=== PATIENT | female | born 2000 | race Caucasian/White ===

== ENCOUNTER 2020-05-06 09:52 | Emergency (ER) | payer OTHER ==
[~2020-05-06] VITALS: Ht 167.6 cm; Wt 59.1 kg
[2020-05-06] MEDS ORDERED: bcp's PO (09:57)
[2020-05-06 10:19] LABS: BASO # 0.1 10^3/uL (0.0-0.2); EOS # 0.1 10^3/uL (0.0-0.5); EOS % 1.4 % (0.0-3.0); HEMATOCRIT 40.3 % (36.0-47.0); HEMOGLOBIN 13.1 g/dl (12.0-15.5); LYMPH # 2.7 10^3/uL (1.5-5.0); LYMPH % 34.8 % (24.0-44.0); MEAN CORPUSCULAR HEMOGLOBIN 30.8 pg (27.0-33.0); MEAN CORPUSCULAR HGB CONC 32.5 g/dl (32.0-36.5); MEAN CORPUSCULAR VOLUME 94.8 fl (80.0-96.0); MONO # 0.6 10^3/uL (0.0-0.8); MONO % 7.3 % (0.0-5.0); NEUTROPHILS # 4.3 10^3/uL (1.5-8.5); NEUTROPHILS % 55.1 % (36.0-66.0); PLATELET COUNT, AUTOMATED 352 10^3/uL (150-450); RED BLOOD COUNT 4.25 10^6/uL (4.00-5.40); WHITE BLOOD COUNT 7.8 10^3/uL (4.0-10.0)
[2020-05-06 10:42] LABS: ALBUMIN 3.9 GM/DL (3.2-5.2); ALT/SGPT 22 U/L (12-78); BILIRUBIN,DIRECT < 0.1 MG/DL (0.0-0.2); BILIRUBIN,TOTAL 0.3 MG/DL (0.2-1.0); LIPASE 89 U/L (73-393); TOTAL PROTEIN 7.4 GM/DL (6.4-8.2)
[2020-05-06] MEDS ORDERED: cefTRIAXone SOD 1 GM in D5W MINI-BAG PLUS 50 ML IV ONE (11:00)
[2020-05-06] MEDS ORDERED: NS 1,000 ML IV ONE (11:15)
--- NOTE | 2020-05-06 11:52 | REP ---
INDICATION: hematuria, vomiting, ro stone COMPARISON: None TECHNIQUE: Axial noncontrast images from the lung bases to the pubic symphysis with coronal and sagittal reformations. This CT examination was performed using the following dose reduction techniques: Automated exposure control, adjustment of mA and/or kv according to the patient's size, and use of iterative reconstruction technique. FINDINGS: Acute moderate right-sided hydroureteronephrosis with a 3 mm obstructing calculus in the distal right ureter (image 118). No further urinary tract calcifications are appreciated. Left kidney/ureter and bladder appear normal. Liver, spleen, pancreas, gallbladder, and bilateral adrenal glands are normal. The enteric system is without obstruction or acute inflammatory process. Normal terminal ileum and appendix in the right lower quadrant. Further evaluation of the pelvis demonstrates normal bladder and age-appropriate uterus/adnexa. No ascites. No free air. No adenopathy. Lung bases are clear. IMPRESSION: Moderate right-sided obstructive uropathy with a 3 mm calculus in the distal right ureter. <Electronically signed by Zachary Raphael > 05/06/20 [id number]
[2020-05-06] MEDS ORDERED: KETOROLAC 30 MG/ML 1ML VIAL IV ONE (12:15)
[2020-05-06] MEDS ORDERED: TAMSULOSIN 0.4 MG CAP PO ONE (12:15)
[2020-05-06] MEDS ORDERED: FLOM0.4C39 PO (13:09)
[2020-05-06] MEDS ORDERED: KEFL500C17 PO (13:09)
[2020-05-06] MEDS ORDERED: KETO10TAB PO (13:09)
[2020-05-06 13:24] VITALS: BP 130/64
== END 2020-05-06 13:26 | disposition home or self-care (01) ==
LOC: M ED 09:52
DX: N39.0 Urinary tract infection, site not specified (principal); R31.9 Hematuria, unspecified; N20.1 Calculus of ureter
CPT/HCPCS: 36415; 74176; 80047; 80076; 81001; 83690; 84702; 85025; 87086; 96365; 96375; 99284; J0696; J1885

== ENCOUNTER → 2022-08-06 | Outpatient (CLI) | payer OTHER ==
[~2022-08-06] MED LIST: FLOM0.4C39 PO; ISOVUE-300 61% 100ML VIAL As Ordered ONE; KEFL500C17 PO; KETO10TAB PO; LIDOCAINE 1% MDV 20ML VIAL As Ordered ONE; PROHANCE 279.3MG/ML 5ML VIAL As Ordered ONE; bcp's PO
== END ==
LOC: M RAD 06:46
PROVIDERS: ATTEND Nurse Practitioner Family
DX: M25.511 Pain in right shoulder (principal)
CPT/HCPCS: 23350; 73223; 77002; A9576

== ENCOUNTER → 2023-05-20 | Day surgery (SDC) | payer OTHER ==
[~2023-05-20] VITALS: Ht 167.6 cm; Wt 64.4 kg
[~2023-05-20] MED LIST changes: +ACETAMINOPHEN 1000MG 100ML IV BAG As Ordered ONE; +HYDROMORPHONE HCL 0.5 MG/ 0.5 ML SYRINGE IV PRN; -ISOVUE-300 61% 100ML VIAL As Ordered ONE; +LACRILUBE (AKWA TEARS) OPHTH OINT 3.5GM As Ordered ONE; -LIDOCAINE 1% MDV 20ML VIAL As Ordered ONE; +LIDOCAINE 2% 100MG/5ML SDV (FOR ANES.) As Ordered ONE; +LR 1,000 ML IV SCH; +MIDAZOLAM INJ 2MG/2ML VIAL As Ordered ONE; +ONDANSETRON 4MG 2ML VIAL As Ordered ONE; +ONDANSETRON 4MG 2ML VIAL IV PRN; +PHENYLephrine 500MCG 5ML (100MCG/ML) SYRINGE As Ordered ONE; -PROHANCE 279.3MG/ML 5ML VIAL As Ordered ONE; +ROCURONIUM BROMIDE 50MG/5ML VIAL As Ordered ONE; +SUGAMMADEX SODIUM 500 MG/5 ML VIAL (BRIDION) As Ordered ONE; +ePHEDrine SULFATE 25 MG/5 ML(5MG/ML) SYRINGE As Ordered ONE; +fentaNYL 100 MCG/2 ML INJECTION As Ordered ONE; +fentaNYL 100 MCG/2 ML INJECTION IV PRN; +oxyCODONE 5MG TAB PO PRN; +propofoL 200 MG/20 ML VIAL As Ordered ONE
[2023-05-20 09:29] VITALS: BP 120/67; TEMP 97.7; O2SAT 100
== END | disposition home or self-care (01) ==
LOC: M SDC 06:21
PROVIDERS: ATTEND Orthopaedic Surgery
DX: M25.611 Stiffness of right shoulder, not elsewhere classified (principal); Z98.890 Other specified postprocedural states
CPT/HCPCS: 23700; 81025; J0131; J1100; J2250; J2371; J2405; J3010